=== PATIENT | male | born 1980 | race Two or more races ===

== ENCOUNTER 2018-10-01 18:58 | Emergency (ER) | payer MEDICAID ==
[2018-10-01 19:58] LABS: ALB/GLOB RATIO 1.5 (1.0-1.8); ALBUMIN 4.5 gm/dL (4.2-5.5); ALKALINE PHOSPHATASE 65 U/L (34-104); ANION GAP 12.2 (7.0-16.0); BILIRUBIN,TOTAL 2.2 mg/dL (0.3-1.0); BUN - UREA NITROGEN 26 mg/dL (7-25); CALCIUM SERUM 9.8 mg/dL (8.6-10.3); CARBON DIOXIDE 31.6 mEq/L (21.0-31.0); CHLORIDE 104 mEq/L (98-107); CREATININE - SERUM 0.9 mg/dL (0.7-1.3); GFR AFRICAN-AMERICAN > 60.0 ml/min (>90); GFR NON AFRICAN-AMERICAN > 60.0 ml/min; GLUCOSE 104 mg/dL (70-105); MAGNESIUM 2.4 mg/dL (1.9-2.7); PHOSPHOROUS 4.3 mg/dL (2.5-5.0); POTASSIUM SERUM 3.8 mEq/L (3.5-5.1); SGOT 87 U/L (13-39); SGPT/ALT 43 U/L (7-52); SODIUM SERUM 144 mEq/L (136-145); TOTAL PROTEIN,SERUM 7.5 gm/dL (6.0-8.3)
[2018-10-01 20:01] LABS: % EOSINOPHILS 0.4 % (0.0-5.0); % LYMPHOCYTES 21.6 % (20.0-50.0); % MONOCYTES 9.3 % (2.0-10.0); % NEUTROPHILS 67.7 % (40.0-80.0); BASOPHILE ABSOLUTE 0.1 Th/cumm (0-0.2); HEMATOCRIT 43.6 % (41.0-60); LYMPHOCYTE ABSOLUTE 2.2 Th/cmm (1.5-3.0); MEAN CELL VOLUME 82.7 fl (80-99); MEAN CORPUSCULAR HEMOGLOBIN 28.4 pg (26.0-30.0); MEAN CORPUSCULAR HGB CONC 34.3 pg (28.0-36.0); MEAN PLATELET VOLUME 8.9 fl; NEUTROPHILE ABSOLUTE 7.1 Th/cmm (1.8-8.0); PLATELET COUNT 276 Th/cmm (150-400); RED BLOOD COUNT 5.27 Mil/cmm (4.30-5.70); RED CELL DISTRIBUTION WIDTH 11.8 % (11.5-20.0); WHITE BLOOD COUNT 10.4 Th/cmm (4.8-10.8)
[2018-10-01 21:10] LABS: URINE SOURCE CLEAN C
[2018-10-01 21:12] LABS: URINE BILIRUBIN SMALL (NEGATIVE); URINE BLOOD NEGATIVE (NEGATIVE); URINE GLUCOSE (UA) NEGATIVE (NEGATIVE); URINE KETONE NEGATIVE (NEGATIVE); URINE LEUKOCYTE ESTERASE NEGATIVE (NEGATIVE); URINE NITRATE NEGATIVE (NEGATIVE); URINE PROTEIN 30 mg/dL (NEGATIVE); URINE UROBILINOGEN 0.2 E.U./dL (0.2 - 1.0)
[2018-10-01 21:15] LABS: AMPHETAMINE URINE POSITIVE (NEGATIVE); BARBITURATES URINE NEGATIVE (NEGATIVE); CANNABINOID THC NEGATIVE (NEGATIVE); COCAINE METABOLITE QUAL URINE NEGATIVE (NEGATIVE); METHADONE URINE NEGATIVE (NEGATIVE); METHAMPHETAMINES QUAL URINE POSITIVE (NEGATIVE); OPIATES (MORPHINE) QUAL. URINE POSITIVE (NEGATIVE); PHENCYCLIDINE (PCP) URINE NEGATIVE (NEGATIVE); TRICYCLICS (TCA) QUAL. URINE NEGATIVE (NEGATIVE)
[2018-10-01 21:16] LABS: BENZODIAZEPINES QUAL URINE NEGATIVE (NEGATIVE)
[2018-10-01 21:27] LABS: URINE CLARITY CLEAR (CLEAR); URINE COLOR YELLOW; URINE EPITHELIAL CELLS NONE SEEN /lpf (FEW); URINE MICROSCOPIC INDICATED? YES; URINE RBC NONE SEEN /hpf (0-5); URINE WBC 0-2 /hpf (0-5)
[2018-10-01 21:28] LABS: URINE BACTERIA OCCASIONAL /hpf (NONE SEEN)
--- NOTE | 2018-10-01 22:05 | ED Physician Chart ---
ED Chief Complaint/HPI - Patient Information Date Seen:: 10/01/18 Time Seen:: 19:40 Chief Complaint:: medical clearance need History of Present Illness:: medical clearance need. Patient states that he was suicidal to a nurse but denied it to me. When asked, he told me that he wasn't suicidal and that he just wanted to get to where he was supposed to get to (namely group home). Patient denies suicidal ideation and homicidal ideation. 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 Patient also states that he has had chronic low back pain since a workmen's compensation accident in 2004. Patient stares that he has mental health issues. States that he is bipolar/ schizo/manic yet denies being on medication for this issue and can't tell me the name of a psychiatrist or mental health professional that he sees. Then, patient changed his story and said that he goes to [facility]. States that he doesn't know the number of the pharmacy for his "medication" that he doesn't know the name of. States that he doesn't take a medication on a regular basis. THIS PATIENT'S STORY CHANGES FROM SECOND TO SECOND. States that he takes no medication for his high blood pressure. States that he takes no medication for his high cholesterol. Allergies:: Allergies Allergy/AdvReac Type Severity Reaction Status Date / Time No Known Allergies Allergy Verified 10/01/18 19:49 Vitals:: Vital Signs - 8 hr 10/01/18 19:40 Temp 98.1 F HR 62 RR 18 BP 141/88 O2 Sat % 97 Historian:: Patient, Other (police officers) Review:: Nurse's Note Reviewed, Transfer documents Reviewed ED Review of Systems - Review of Systems General/Constitutional: No fever, No chills, No weight loss, No weakness, No diaphoresis, No edema, No loss of appetite Skin: No skin lesions, No rash, No bruising Head: No headache, No light-headedness Eyes: No loss of vision, No pain, No diplopia ENT: No earache, No nasal drainage, No sore throat, No tinnitus Neck: No neck pain, No swelling, No thyromegaly, No stiffness, No mass noted Cardio Vascular: No chest pain, No palpitations, No PND, No orthopnea, No edema Pulmonary: No SOB, No cough, No sputum, No wheezing GI: No nausea, No vomiting, No diarrhea, No pain, No melena, No hematochezia, No constipation, No hematemesis G/U: No dysuria, No frequency, No hematuria Musculoskeletal: Bone or joint pain, Back pain Endocrine: No polyuria, No polydipsia Psychiatric: Prior psych history, No depression, No anxiety, No suicidal ideation, No homicidal ideation, No auditory hallucination, No visual hallucination Hematopoietic: No bruising, No lymphadenopathy Allergic/Immuno: No urticaria, No angioedema Neurological: No syncope, No focal symptoms, No weakness, No paresthesia, No headache, No seizure, No dizziness, No confusion, No vertigo ED Past Medical History - Past Medical History Obtainable: Yes Past Medical History: No significant medical hx, Other (low back pain; left shoulder pain) Social History: Illicit Drug Use Psychiatricy History: Schizophrenia, Bipolar Family Medical History - Family Member Mother History Unknown: Yes ED Physical Exam - Physical Examination General/Constitutional: Awake Other Gen/Cons comments:: Heavy lidded appearing. Changes answers to questions every second. Obviously trying to manipulate the situation. Head: Atraumatic Other Head comments:: R jaw is more prominent with facial asymmetry which is of a chronic basis from the way that a R mandible fracture healed. Eyes: Lids, conjuctiva normal, PERRL, EOMI Skin: Nl inspection, No rash, No skin lesions, No ecchymosis, Well hydrated, No lymphadenopathy Other Skin comments:: No evidence of patches such as Fentanyl on patient. Checked out patient's naked body. ENMT: External ears, nose nl, Nasal exam nl, Lips, teeth, gums nl, Oropharynx nl , Tonsils nl Neck: Nontender, Full ROM w/o pain, No nuchal rigidity, No stridor Respiratory: Nl effort/Exclusion, Clear to Auscultation, No Wheeze/Rhonchi/Rales Cardio Vascular: RRR, No murmur, gallop, rubs, NL S1 S2 GI: No tenderness/rebounding/guarding, No organomegaly, No hernia, Normal BS's, Nondistended : No CVA tenderness, NL external genitalia Extremities: No edema Other Extremities comments:: Complains of no pain to palpation of the left rotator cuff area. NO CREPITANCE AT ALL TO PALPATION OF THE LEFT SHOULDER JOINT. PATIENT REFUSES TO PUT HIS LEFT ARM OVER HIS HEAD. PALPATION OF HIS LEFT ROTATOR CUFF REVEALS A ROTATOR CUFF AND NO SUBLUXATION OR DISLOCATION OF THE LEFT HUMERAL HEAD WILL BE SEEN WITH A COMPLETE ROTATOR CUFF TEAR. PATIENT REFUSES TO PUT HIS LEFT ARM BEHIND HIS BACK PATIENT REFUSES TO FORWARD ELEVATE HIS LEFT ARM AND EVEN REFUSES TO STRAIGHTEN HIS LEFT ELBOW. 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 HE DOES NOT HAVE A LABRAL DEFORMITY BASED ON EXAM. THE LEFT SHOULDER PROBLEM WAS SO INSIGNIFICANT TO THE PATIENT THAT HE NEVER SET UP SURGERY TO HAVE IT TREATED. I BELIEVE THAT THIS PATIENT SHOULD BE SEEN BY AN ORTHOPEDIST OR OBTAIN HIS OLD MEDICAL RECORDS AND MRI RESULTS IF HE IS GOING TO BE INCARCERATED FOR AWHILE. PATIENT DOES NOT HAVE A FROZEN LEFT SHOULDER. NV intact. Neuro/Psych: Alert/oriented, Normal sensory exam, Normal motor strength, Judgement/insight normal Other Neuro/Psych comments:: Acts under the influence. Misc: Normal back, No paraspinal tenderness Other Misc comments:: Negative straight leg raise. Bends down easily to put on his shoes and socks. ED Labs/Radiology/EKG Results - Lab Results Results: Laboratory Tests 10/01/18 10/01/18 10/01/18 19:32 19:32 20:50 WBC 10.4 RBC 5.27 Hgb 15.0 Hct 43.6 MCV 82.7 MCH 28.4 MCHC Differential 34.3 RDW 11.8 Plt Count 276 MPV 8.9 Neutrophils % 67.7 Lymphocytes % 21.6 Monocytes % 9.3 Eosinophils % 0.4 Basophils % 1.0 Sodium 144 Potassium 3.8 Chloride 104 Carbon Dioxide 31.6 H Anion Gap 12.2 BUN 26 H Creatinine 0.9 Est GFR ( Amer) > 60.0 Est GFR (Non-Af Amer) > 60.0 BUN/Creatinine Ratio 28.9 Glucose 104 Calcium 9.8 Phosphorus 4.3 Magnesium 2.4 Total Bilirubin 2.2 H AST 87 H ALT 43 Alkaline Phosphatase 65 Total Protein 7.5 Albumin 4.5 Globulin 3.0 Albumin/Globulin Ratio 1.5 Urine Source Urine Color Urine Clarity Urine pH Ur Specific Cum[place] Urine Protein Urine Glucose (UA) Urine Ketones Urine Blood Urine Nitrate Urine Bilirubin Urine Urobilinogen Ur Leukocyte Esterase Urine RBC Urine WBC Ur Epithelial Cells Urine Bacteria Urine Opiates Screen POSITIVE H Urine Methadone Screen NEGATIVE Ur Barbiturates Screen NEGATIVE Ur Tricyclics Screen NEGATIVE Ur Phencyclidine Scrn NEGATIVE Amphetamines Screen POSITIVE H U Methamphetamines Scrn POSITIVE H U Benzodiazepines Scrn NEGATIVE U Cocaine Metab Screen NEGATIVE U Cannabinoids Screen NEGATIVE Ethyl Alcohol < 10 10/01/18 21:08 WBC RBC Hgb Hct MCV MCH MCHC Differential RDW Plt Count MPV Neutrophils % Lymphocytes % Monocytes % Eosinophils % Basophils % Sodium Potassium Chloride Carbon Dioxide Anion Gap BUN Creatinine Est GFR ( Amer) Est GFR (Non-Af Amer) BUN/Creatinine Ratio Glucose Calcium Phosphorus Magnesium Total Bilirubin AST ALT Alkaline Phosphatase Total Protein Albumin Globulin Albumin/Globulin Ratio Urine Source CLEAN C Urine Color YELLOW Urine Clarity CLEAR Urine pH 6.0 Ur Specific Cum[place] 1.025 Urine Protein 30 H Urine Glucose (UA) NEGATIVE Urine Ketones NEGATIVE Urine Blood NEGATIVE Urine Nitrate NEGATIVE Urine Bilirubin SMALL H Urine Urobilinogen 0.2 Ur Leukocyte Esterase NEGATIVE Urine RBC NONE SEEN Urine WBC 0-2 Ur Epithelial Cells NONE SEEN Urine Bacteria OCCASIONAL Urine Opiates Screen Urine Methadone Screen Ur Barbiturates Screen Ur Tricyclics Screen Ur Phencyclidine Scrn Amphetamines Screen U Methamphetamines Scrn U Benzodiazepines Scrn U Cocaine Metab Screen U Cannabinoids Screen Ethyl Alcohol ED Assessment - Assessment General Assessment: left shoulder xray: negative for fracture. Humerus may be a little high riding as evidence of possible rotator cuff tear. ED Septic Shock - . Is Septic Shock (SBP<90, OR Lactate>4 mmol\\L) present?: No - <6hrs of presentation: Vital Signs: Vital Signs - 8 hr 10/01/18 19:40 Temp 98.1 F HR 62 RR 18 BP 141/88 O2 Sat % 97 ED Reassessment (Disposition) - Reassessment Reassessment Condition:: Unchanged - Diagnosis Diagnosis:: Malingering and manipulation Methamphetamine usage Opiate usage, consider sale of opiates on the street since patient received prescription for 84 pills (admitted to taking 6 pills today) and bottle of Tylenol with codeine pills not retrieved from the house. Chronic pain Left shoulder pain, may have a chronic left rotator cuff tear. He doesn't have a labral deformity. 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 HE DOES NOT HAVE A LABRAL DEFORMITY BASED ON EXAM. THE LEFT SHOULDER PROBLEM WAS SO INSIGNIFICANT TO THE PATIENT THAT HE NEVER SET UP SURGERY TO HAVE IT TREATED. I BELIEVE THAT THIS PATIENT SHOULD BE SEEN BY AN ORTHOPEDIST OR OBTAIN HIS OLD MEDICAL RECORDS AND MRI RESULTS IF HE IS GOING TO BE INCARCERATED FOR AWHILE. Low back pain with no loss of range of motion and negative straight leg raise test. NO NEED FOR ANY CONCERN Bipolar, schizo and manic per patient (no medications taken on a consistent basis and not seeing a therapist on a consistent basis). NO SUICIDAL IDEATION AND NO HOMICIDAL IDEATION. CONSIDER HAVING HIM SEEN BY A MENTAL HEALTH PROFESSIONAL FOR A CONSULT AND POSSIBLE TREATMENT IF INCARCERATED ON A LONG- TERM BASIS High blood pressure in the 140's which patient is not taking any medication for. CHECK BLOOD PRESSURES PER PROTOCOL WHILE AT INTERMEDIATE. Unknown "high cholesterol" that the patient is not taking any medication for. CONSIDER DRAWING BLOOD AT SOME POINT TO CHECK LIPID PROFILE. Elevated two liver function tests: avoid Tylenol and alcohol. Follow up with primary care doctor and recheck liver tests. Patient denies h/o Hepatitis A, B and C and last had alcohol a week ago. OPIATES CAN INCREASE THE LIVER TESTS, BUT NOT ALL OF THE TESTS ARE ELEVATED AND ONLY MINIMALLY SO. Protein in urine: recheck at group home with a dipstick. This may be an incorrect reading. If still present, patient may need to be placed on blood pressure medicine (or control blood pressure with diet by avoiding salt and caffeine). Also, would help to increase hydration. Bilirubin in urine: recheck at group home with a dipstick. This may be an incorrect reading. CORRELATE WITH TWO OF THE ELEVATED LIVER FUNCTION TESTS. IN CONCLUSION, BASED ON MY PROFESSIONAL MEDICAL OPINION, THIS PATIENT HAS SOME VERY MINOR HEALTH PROBLEMS THAT WILL CAUSE ABSOLUTELY NO PROBLEM WITH HIS LONG- TERM INCARCERATION. PLEASE CONSIDER FOLLOWING MY AFOREMENTIONED RECOMMENDATIONS. - Aftercare/Follow up Instructions Medication Prescribed:: NONE - Patient Disposition Discharge/Transfer:: [facility]/Half-Way Condition at Disposition:: Stable, Unchanged
--- NOTE | 2018-10-02 09:45 | Diagnostic Imaging Report ---
Left shoulder 3 views Indication: pain Comparison: none Findings: No evidence of an acute fracture or dislocation. Minimal degenerative changes are noted. No significant focal soft tissue swelling. Impression: No evidence of an acute fracture. Minimal degenerative changes. In the setting of trauma, if clinical symptoms persist and there is continued concern for an occult fracture, follow up exams in 5-7 days is suggested.
== END 2018-10-01 23:13 | disposition still patient (30) ==
LOC: ER 18:58
DX: M25.512 Pain in left shoulder (principal); M54.5 Low back pain; G89.29 Other chronic pain; F15.90 Other stimulant use, unspecified, uncomplicated; F11.90 Opioid use, unspecified, uncomplicated; F20.9 Schizophrenia, unspecified; F31.9 Bipolar disorder, unspecified; Z76.5 Malingerer [conscious simulation]
CPT/HCPCS: 36415-UA; 73030-TC-LT; 80053-TC; 80307; 80320-TC; 81001-TC; 83735-TC; 84100-TC; 85025-TC